=== PATIENT | female | born 1940 | race Caucasian/White ===

== ENCOUNTER → 2016-11-17 | Outpatient (CLI) | payer OTHER ==
[~2016-11-17] MED LIST: ACET-1311 PO; ASPI1TAB48 PO; ATOR-22 PO; DIVA1CAP2 PO; DIVA250T PO; FURO-85 PO; HALO5INJ IM; HALO5TAB PO; HYDR-4332 PO; LPT/40 PO; MCRK20 PO; MEGE40SU PO; MOML PO; NTRS PO; NUTR1LIQ55 PO; POTA20TA16 PO; QUET1TAB34 PO; SENN-61 PO; SODI1ENE RE; [UNRECOGNIZED DRUG - CODE] PO; dulcolax suppository RE
== END ==
LOC: C.LABUPHEI 09:06
PROVIDERS: ATTEND Family Medicine
DX: G40.89 Other seizures (principal)

== ENCOUNTER → 2016-11-18 | Outpatient (CLI) | payer OTHER | LOC: C.LABUPHEI 08:01 | PROVIDERS: ATTEND Family Medicine | DX: G40.89 Other seizures (principal) ==

== ENCOUNTER → 2016-12-02 | Outpatient (CLI) | payer OTHER ==
[~2016-12-02] MED LIST changes: -DIVA1CAP2 PO; +DPKSP125 PO
== END ==
LOC: C.LABUPHEI 09:04
PROVIDERS: ATTEND Family Medicine
DX: G40.89 Other seizures (principal)

== ENCOUNTER 2017-01-03 21:57 | Emergency (ER) | payer OTHER ==
[~2017-01-03] VITALS: Ht 152.4 cm; Wt 66.8 kg
[~2017-01-03 21:57] MED LIST changes: -DIVA250T PO; -HALO5INJ IM; -HALO5TAB PO; -HYDR-4332 PO; -LPT/40 PO; -MCRK20 PO; -MEGE40SU PO; -NTRS PO; -NUTR1LIQ55 PO; -SENN-61 PO
[2017-01-03 22:00] VITALS: TEMP 36.8; Ht 152.4 cm; Wt 66.8 kg
[2017-01-03] MEDS ORDERED: DIVA250T PO (23:22)
[2017-01-03] MEDS ORDERED: LPT/40 PO (23:23)
[2017-01-03] MEDS ORDERED: MEGE40SU PO (23:25)
[2017-01-03] MEDS ORDERED: MCRK20 PO (23:28)
[2017-01-03] MEDS ORDERED: SENN-61 PO (23:28)
[2017-01-03] MEDS ORDERED: NUTR1LIQ55 PO (23:29)
[2017-01-03] MEDS ORDERED: NTRS PO (23:33)
[2017-01-03] MEDS ORDERED: HALO5TAB PO (23:35)
[2017-01-03] MEDS ORDERED: [UNRECOGNIZED DRUG - CODE] PO (23:35)
[2017-01-03] MEDS ORDERED: HALO5INJ IM (23:37)
[2017-01-03] MEDS ORDERED: HYDR-4332 PO (23:39)
--- NOTE | 2017-01-04 01:39 | EMERGENCY ROOM VISIT NOTE ---
History Report prepared by Willibjoni: Anjel Andrew Under the Supervision of: Dr. Yinka Flaherty M.D. First contact with patient: 23:09 Chief Complaint: FALL Stated Complaint: FELL OUT OF WHEELCHAIR/ FR [facility] History of Present Illness The patient is a 76 year old female who presents to the Emergency Room with complaints of an acute fall that occurred prior to arrival. As per her , the patient fell face-first from her wheelchair at [facility] when she attempted to get up too quickly. The is not sure if she lost consciousness or injured any other part of her body. The patient is able to ambulate with help, but spends most of the time wheelchair-bound. The heart side doctor sent her here for CT scanning. The patient is not on any blood thinners. A complete history is limited secondary to dementia. Source of History: spouse/significant other History Limited By: dementia Onset: prior to arrival Position: other (global) Quality: other (fall) Timing: other (acute) Review of Systems ROS is limited secondary to dementia. Past Medical & Surgical Medical Problems: (1) Altered mental status (2) Alzheimers disease (3) Hypertension (4) Left Knee DJD Surgical Problems: (1) H/O laminectomy (2) H/O Spinal surgery (3) Hx of total knee arthroplasty (4) S/P ANKITA-BSO Family History No significant family history Social History Smoking Status: Unknown if Ever Smoked Drug Use: none Marital Status: Housing Status: lives with family Occupation Status: retired Current/Historical Medications Scheduled Atorvastatin (Lipitor), 40 MG PO DAILY Divalproex Sodium (Divalproex Sodium), 375 MG PO DAILY@1800 Divalproex Sodium (Depakote Er), 500 MG PO QAM Enteral Nutrition Formula (Nutritional Supplement), 120 ML PO TID Furosemide (Lasix), 20 MG PO DAILY Megestrol Acetate (Megace Oral), 400 MG PO DAILY Nutritional Supplements (Nutritional Supplement), 180 ML PO BID Potassium Ext Rel (Klor-Con), 20 MEQ PO DAILY Quetiapine Fumarate (Seroquel), 200 MG PO BID Senna (Senokot), 1 TAB PO DAILY Scheduled PRN Acetaminophen (Tylenol), 650 MG PO Q6 PRN for Pain or Fever Guaifenesin (Irene-Tussin), 10 ML PO Q6 PRN for Cough Haloperidol (Haldol), 5 MG PO Q6 PRN for Agitation Haloperidol Lactate (Haldol), 5 MG IM Q6 PRN for Agitation Hydrocodone-Acetaminophen (LORTAB 10-325 mg), 1 TAB PO Q4 PRN for Pain Allergies Coded Allergies: Morphine (Verified Allergy, Unknown, UNKNOWN, 01/03/17) Tramadol (Verified Adverse Reaction, Intermediate, "WENT TRIPPING OUT" PER , 01/03/17) Physical Exam Vital Signs Date Time Temp Pulse Resp B/P Pulse Ox O2 Delivery O2 Flow Rate FiO2 01/03/17 23:55 67 20 126/70 92 Room Air 01/03/17 22:00 36.8 79 16 124/72 98 Room Air Physical Exam Constitutional: Vital signs reviewed. Eyes: Pupils are equal round reactive to light. Conjunctiva are noninjected. ENT: Pharynx is clear without erythema or exudate. Mucous membranes are moist. Mild swelling to her nose. No epistaxis. No septal hematoma. No midline tenderness to the cervical spine. Neck supple without meningeal signs. Respiratory: Clear to auscultation bilaterally. Breath sounds are equal bilaterally. Cardiovascular: Regular rate and rhythm. No rubs or gallops. GI: Soft, nondistended and nontender. Bowel sounds are present. Musculoskeletal: No hip tenderness. Integumentary: No cyanosis. Neurological: The patient is somnolent but arousable. She does not follow commands. Psychiatric: Unable to assess. Medical Decision & Procedures ER Provider Diagnostic Interpretation: CT results as stated below per my review and radiologist interpretation. CT HEAD: No acute intracranial hemorrhage or mass effect. CT FACIAL: No acute fracture or dislocation. CT C-SPINE: Limited with positioning/technique. Within this limitation, no gross evidence for acute fracture or dislocation. Multi-level degenerative spondylosis. Radiologist: Zander Dominguez MD. ED Course 2312: The patient was evaluated in room A11b. A complete history and physical exam was performed. 0010: I discussed jackight's findings with the . He verbalized agreement of the treatment plan. She was discharged home. Medical Decision This is a 76-year-old female presents with injuries after a fall. Differential diagnosis includes contusion, concussion, intracranial hemorrhage, facial fracture. I did perform a limited focused review of portions of the patient's old chart on the electronic medical record. The patient has had no recent pertinent visits to this hospital. I did evaluate the patient as noted above. I did obtain history from the patient's . The patient fell when she got up too quickly from her wheelchair and suffered a facial injury. She does not appear to have any other injury on examination. I did order a CT of the head, cervical spine and facial bones. I did review the images myself as well as the radiology report as described above. There is no evidence of acute process. I did discuss the test results with the patient's . She was transferred back to her residence. Impression Primary Impression: Acute head injury Additional Impressions: Facial contusion Fall Scribe Attestation The scribe's documentation has been prepared under my direct and personally reviewed by me in its entirety. I confirm that the note above accurately reflects all work, treatment, procedures, and medical decision making performed by me. Departure Information Dispostion Home / Self-Care Referrals Db Perdue (PCP) Forms HOME CARE DOCUMENTATION FORM, IMPORTANT VISIT INFORMATION Patient Instructions ED Head Injury Closed, My [facility] Additional Instructions You have been examined and treated today on an emergency basis only. This is not a substitute for, or an effort to provide, complete comprehensive medical care. It is impossible to recognize and treat all injuries or illnesses in a single emergency department visit. It is therefore important that you follow up closely with your physician. Call as soon as possible for an appointment. Return for worsening symptoms or if you develop fever, vomiting, or any other concerning symptoms. Problem Qualifiers
[2017-01-04 01:50] VITALS: BP 94/66; PULSE 67; O2SAT 96
--- NOTE | 2017-01-04 06:32 | DIAGNOSTIC IMAGING REPORT ---
CT HEAD WITHOUT CONTRAST (CT) CLINICAL HISTORY: Head trauma. Head pain. COMPARISON STUDY: 10/21/2016 TECHNIQUE: Axial CT of the brain is performed from the vertex to the skull base. IV contrast was not administered for this examination. CT DOSE: FINDINGS: No intra or extra-axial mass lesions are visualized. There is no CT evidence of acute cortical infarction. There is no evidence of midline shift. There is no acute hemorrhage. No calvarial fractures are visualized. There are patchy white matter hypodensities likely on a small vessel basis. 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 There is no evidence of pathologic ventricular dilatation. There is no evidence of acute sinusitis IMPRESSION: No acute intracranial findings Electronically signed by: Khang Bustillo M.D. 01/04/2017 6:31 AM Dictated Date/Time: 01/04/2017 6:30 AM
--- NOTE | 2017-01-04 06:37 | DIAGNOSTIC IMAGING REPORT ---
CT OF THE CERVICAL SPINE CLINICAL HISTORY: Neck pain status post trauma COMPARISON STUDY: 10/21/2016 CT DOSE: 953.64 mGy.cm TECHNIQUE: CT scan of the cervical spine was performed from the skull base to the thoracic inlet. Images are reviewed in the axial, sagittal, and coronal planes. IV contrast was not administered for this examination. FINDINGS: There is a small right mastoid effusion. There is mild mucosal thickening within the right sphenoid area no pneumothorax is visualized. There is a right apical bleb. The prevertebral soft tissues are normal. No fractures or traumatic subluxations are visualized. There are multilevel degenerative changes. 2 mm of anterior subluxation of C4 on C5 is felt to be degenerative IMPRESSION: No evidence of acute fracture or traumatic subluxation. Electronically signed by: Khang Bustillo M.D. 01/04/2017 6:35 AM Dictated Date/Time: 01/04/2017 6:31 AM
--- NOTE | 2017-01-04 06:43 | DIAGNOSTIC IMAGING REPORT ---
ADDENDUM Addendum: The mail sorter image demonstrates a displaced right humeral neck fracture which is age indeterminate although likely subacute to chronic. Right humerus radiographs could be obtained as indicated. Electronically signed by: Thom Alford M.D. 01/04/2017 7:18 AM Dictated Date/Time: 01/04/2017 7:18 AM ORIGINAL REPORT MAXILLOFACIAL CT WITHOUT CONTRAST CLINICAL HISTORY: Fall. Evaluate for fracture. COMPARISON STUDY: Head CT July 06, 2016. TECHNIQUE: A maxillofacial CT was performed without IV contrast. Coronal and sagittal reformats were viewed. FINDINGS: No acute facial fracture is identified. Alignment of the temporomandibular joints is anatomic. There is mild mucosal thickening of the sphenoid sinuses. There is a small amount of fluid within the bilateral mastoid air cells. IMPRESSION: No acute facial fracture. Electronically signed by: Thom Alford M.D. 01/04/2017 6:42 AM Dictated Date/Time: 01/04/2017 6:37 AM
== END 2017-01-04 01:55 | disposition home or self-care (01) ==
LOC: EDBD 21:57 → C.EDA 21:58
DX: S09.90XA Unspecified injury of head, initial encounter (principal); T14.8 Other injury of unspecified body region; W05.0XXA Fall from non-moving wheelchair, initial encounter; R41.82 Altered mental status, unspecified; G30.9 Alzheimer's disease, unspecified; F02.80 Dementia in other diseases classified elsewhere, unspecified severity, without behavioral disturbance, psychotic disturbance, mood disturbance, and anxiety; I10 Essential (primary) hypertension; M17.9 Osteoarthritis of knee, unspecified

== ENCOUNTER → 2017-01-06 | Outpatient (CLI) | payer OTHER ==
[~2017-01-06] MED LIST changes: +DIVA250T PO; +HALO5INJ IM; +HALO5TAB PO; +HYDR-4332 PO; +LPT/40 PO; +MCRK20 PO; +MEGE40SU PO; +NTRS PO; +NUTR1LIQ55 PO; +SENN-61 PO
[2017-01-06 09:37] LABS: URINE APPEARANCE CLEAR (CLEAR); URINE BILIRUBIN NEG (NEG); URINE COLOR YELLOW; URINE NITRITE NEG (NEG); URINE PH 6.5 (4.5-7.5); URINE SPECIFIC GRAVITY 1.012 (1.000-1.030); UROBILINOGEN NEG (NEG)
[2017-01-06 09:58] LABS: MANUAL MICROSCOPIC REQUIRED? NO; REVIEW REQ? NO
== END ==
LOC: C.LABUPHEI 08:53
PROVIDERS: ATTEND Family Medicine
DX: F91.0 Conduct disorder confined to family context (principal)

== ENCOUNTER → 2017-01-18 | Outpatient (CLI) | payer OTHER ==
[~2017-01-18] MED LIST changes: -ASPI1TAB48 PO; -ATOR-22 PO; -MCRK20 PO; -MOML PO; -SODI1ENE RE; -dulcolax suppository RE
[2017-01-18 10:22] LABS: ALT/SGPT 10 U/L (12-78); BLOOD UREA NITROGEN 20 mg/dl (7-18); BUN/CREATININE RATIO 35.5 (10-20); CALCIUM 8.2 mg/dl (8.5-10.1); CARBON DIOXIDE 24 mmol/L (21-32); CHLORIDE 114 mmol/L (98-107); CREATININE 0.56 mg/dl (0.60-1.20); GLUCOSE 83 mg/dl (70-99); POTASSIUM 3.7 mmol/L (3.5-5.1); SODIUM 149 mmol/L (136-145)
[2017-01-18 10:25] LABS: ALB/GLOB RATIO 0.6 (0.9-2); ALKALINE PHOSPHATASE 56 U/L (45-117); AST/SGOT 21 U/L (15-37); CHOLESTEROL 89 mg/dl (0-200); CHOLESTEROL/HDL RATIO 3.9; HDL CHOLESTEROL 23 mg/dl; LDL CHOLESTEROL CALCULATED 45 mg/dl; TRIGLYCERIDES 106 mg/dl (0-150); VERY LOW DENSITY LIPOPROT CALC 21 mg/dl
== END ==
LOC: C.LABUPHEI 09:51
PROVIDERS: ATTEND Family Medicine
DX: E87.6 Hypokalemia (principal); G40.89 Other seizures; E78.5 Hyperlipidemia, unspecified

== ENCOUNTER → 2017-01-28 | Outpatient (CLI) | payer OTHER ==
[2017-01-28 08:29] LABS: BLOOD UREA NITROGEN 12 mg/dl (7-18); BUN/CREATININE RATIO 21.8 (10-20); CALCIUM 8.1 mg/dl (8.5-10.1); CARBON DIOXIDE 28 mmol/L (21-32); CHLORIDE 108 mmol/L (98-107); CREATININE 0.57 mg/dl (0.60-1.20); GLUCOSE 84 mg/dl (70-99); POTASSIUM 3.5 mmol/L (3.5-5.1); SODIUM 144 mmol/L (136-145)
== END ==
LOC: C.LABUPHEI 07:57
PROVIDERS: ATTEND Family Medicine
DX: M62.81 Muscle weakness (generalized) (principal)

== ENCOUNTER → 2017-02-20 | Outpatient (CLI) | payer OTHER ==
[~2017-02-20] MED LIST changes: +DIVA1CAP2 PO; -DPKSP125 PO
[2017-02-20 06:48] LABS: ALT/SGPT 22 U/L (12-78); AST/SGOT 37 U/L (15-37); BLOOD UREA NITROGEN 9 mg/dl (7-18); BUN/CREATININE RATIO 16.9 (10-20); CALCIUM 8.1 mg/dl (8.5-10.1); CARBON DIOXIDE 27 mmol/L (21-32); CHLORIDE 107 mmol/L (98-107); CREATININE 0.52 mg/dl (0.60-1.20); GLUCOSE 79 mg/dl (70-99); POTASSIUM 3.8 mmol/L (3.5-5.1); SODIUM 144 mmol/L (136-145)
[2017-02-20 06:50] LABS: BASO % 0.7 %; BASO ABS # 0.04 K/uL (0-0.2); COMPLETE YES; EOS % 1.3 %; HEMATOCRIT 36.1 % (37-47); IG% 0.9 %; LYMPH % 35.2 %; LYMPH ABS # 1.97 K/uL (1.2-3.4); MEAN CELL VOLUME 98.6 fL (80-100); MEAN CORPUSCULAR HEMOGLOBIN 33.3 pg (25-34); MEAN CORPUSCULAR HGB CONC 33.8 g/dl (32-36); MEAN PLATELET VOLUME 11.2 fL (7.4-10.4); MONO % 13.6 %; NEUT % 48.3 %; PLATELET COUNT 210 K/uL (130-400); RED BLOOD COUNT 3.66 M/uL (4.2-5.4); WHITE BLOOD COUNT 5.59 K/uL (4.8-10.8)
[2017-02-20 06:58] LABS: ALB/GLOB RATIO 0.6 (0.9-2); ALKALINE PHOSPHATASE 60 U/L (45-117)
== END ==
LOC: C.LABUPHEI 11:19
PROVIDERS: ATTEND Family Medicine
DX: R60.9 Edema, unspecified (principal); G40.89 Other seizures; M62.81 Muscle weakness (generalized)

== ENCOUNTER → 2017-03-22 | Outpatient (CLI) | payer OTHER ==
[2017-03-22 08:52] LABS: BASO % 0.4 %; BASO ABS # 0.02 K/uL (0-0.2); COMPLETE YES; HEMATOCRIT 42.3 % (37-47); IG% 0.4 %; LYMPH % 36.3 %; LYMPH ABS # 1.97 K/uL (1.2-3.4); MEAN CELL VOLUME 105.2 fL (80-100); MEAN CORPUSCULAR HEMOGLOBIN 34.3 pg (25-34); MEAN CORPUSCULAR HGB CONC 32.6 g/dl (32-36); MEAN PLATELET VOLUME 11.6 fL (7.4-10.4); MONO % 12.9 %; PLATELET COUNT 218 K/uL (130-400); RED BLOOD COUNT 4.02 M/uL (4.2-5.4); WHITE BLOOD COUNT 5.42 K/uL (4.8-10.8)
[2017-03-22 09:05] LABS: BLOOD UREA NITROGEN 13 mg/dl (7-18); BUN/CREATININE RATIO 25.1 (10-20); CALCIUM 8.6 mg/dl (8.5-10.1); CARBON DIOXIDE 30 mmol/L (21-32); CHLORIDE 108 mmol/L (98-107); CREATININE 0.52 mg/dl (0.60-1.20); GLUCOSE 81 mg/dl (70-99); POTASSIUM 3.8 mmol/L (3.5-5.1); SODIUM 144 mmol/L (136-145)
== END ==
LOC: C.LABUPHEI 08:39
PROVIDERS: ATTEND Family Medicine
DX: E87.6 Hypokalemia (principal); E55.9 Vitamin D deficiency, unspecified; R60.9 Edema, unspecified; G40.89 Other seizures

== ENCOUNTER → 2017-04-01 | Outpatient (CLI) | payer OTHER ==
[2017-04-01 09:18] LABS: BASO % 0.6 %; BASO ABS # 0.03 K/uL (0-0.2); COMPLETE YES; EOS % 3.2 %; HEMATOCRIT 37.8 % (37-47); IG% 0.2 %; LYMPH % 37.1 %; LYMPH ABS # 1.98 K/uL (1.2-3.4); MEAN CELL VOLUME 104.4 fL (80-100); MEAN CORPUSCULAR HGB CONC 32.5 g/dl (32-36); MONO % 10.7 %; NEUT % 48.2 %; PLATELET COUNT 208 K/uL (130-400); RED BLOOD COUNT 3.62 M/uL (4.2-5.4); WHITE BLOOD COUNT 5.33 K/uL (4.8-10.8)
[2017-04-01 09:33] LABS: BLOOD UREA NITROGEN 14 mg/dl (7-18); BUN/CREATININE RATIO 31.4 (10-20); CALCIUM 8.1 mg/dl (8.5-10.1); CARBON DIOXIDE 28 mmol/L (21-32); CHLORIDE 109 mmol/L (98-107); CREATININE 0.46 mg/dl (0.60-1.20); GLUCOSE 81 mg/dl (70-99); POTASSIUM 3.7 mmol/L (3.5-5.1); SODIUM 143 mmol/L (136-145)
== END ==
LOC: C.LABUPHEI 08:57
PROVIDERS: ATTEND Nurse Practitioner Family
DX: G40.89 Other seizures (principal); E55.9 Vitamin D deficiency, unspecified; I10 Essential (primary) hypertension

== ENCOUNTER → 2017-04-22 | Outpatient (CLI) | payer OTHER ==
[~2017-04-22] MED LIST changes: -DIVA1CAP2 PO; +DPKSP125 PO
== END ==
LOC: C.LABUPHEI 08:41
PROVIDERS: ATTEND Family Medicine
DX: Z01.89 Encounter for other specified special examinations (principal)

== ENCOUNTER → 2017-06-30 | Outpatient (CLI) | payer OTHER | LOC: C.LABUPHEI 08:38 | PROVIDERS: ATTEND Nurse Practitioner Family | DX: G40.89 Other seizures (principal) ==

== ENCOUNTER → 2017-07-28 | Outpatient (CLI) | payer OTHER ==
[2017-07-28 10:57] LABS: BASO % 0.8 %; BASO ABS # 0.03 K/uL (0-0.2); COMPLETE YES; HEMATOCRIT 38.7 % (37-47); IG% 0.3 %; LYMPH % 37.6 %; LYMPH ABS # 1.42 K/uL (1.2-3.4); MEAN CORPUSCULAR HEMOGLOBIN 32.6 pg (25-34); MEAN CORPUSCULAR HGB CONC 32.6 g/dl (32-36); MEAN PLATELET VOLUME 11.2 fL (7.4-10.4); MONO % 11.6 %; NEUT % 44.7 %; PLATELET COUNT 213 K/uL (130-400); RED BLOOD COUNT 3.87 M/uL (4.2-5.4); WHITE BLOOD COUNT 3.78 K/uL (4.8-10.8)
[2017-07-28 11:29] LABS: ALT/SGPT 12 U/L (12-78); AST/SGOT 9 U/L (15-37); BLOOD UREA NITROGEN 13 mg/dl (7-18); CALCIUM 8.4 mg/dl (8.5-10.1); CARBON DIOXIDE 29 mmol/L (21-32); CHLORIDE 107 mmol/L (98-107); CREATININE 0.53 mg/dl (0.60-1.20); GLUCOSE 78 mg/dl (70-99); POTASSIUM 3.7 mmol/L (3.5-5.1); SODIUM 144 mmol/L (136-145)
[2017-07-28 11:34] LABS: ALB/GLOB RATIO 0.8 (0.9-2); ALKALINE PHOSPHATASE 75 U/L (45-117); CHOLESTEROL 80 mg/dl (0-200); CHOLESTEROL/HDL RATIO 2.8; HDL CHOLESTEROL 29 mg/dl; LDL CHOLESTEROL CALCULATED 22 mg/dl; TRIGLYCERIDES 143 mg/dl (0-150); VERY LOW DENSITY LIPOPROT CALC 29 mg/dl
== END ==
LOC: C.LABUPHEI 09:11
PROVIDERS: ATTEND Nurse Practitioner Family
DX: R60.9 Edema, unspecified (principal); G40.89 Other seizures; E78.5 Hyperlipidemia, unspecified; E55.9 Vitamin D deficiency, unspecified

== ENCOUNTER → 2017-08-27 | Outpatient (CLI) | payer OTHER ==
[2017-08-27 09:10] LABS: BASO % 0.5 %; BASO ABS # 0.02 K/uL (0-0.2); COMPLETE YES; EOS % 4.1 %; HEMATOCRIT 44.2 % (37-47); IG% 0.2 %; LYMPH % 37.7 %; LYMPH ABS # 1.57 K/uL (1.2-3.4); MEAN CELL VOLUME 98.9 fL (80-100); MEAN CORPUSCULAR HEMOGLOBIN 32.9 pg (25-34); MEAN CORPUSCULAR HGB CONC 33.3 g/dl (32-36); MEAN PLATELET VOLUME 11.3 fL (7.4-10.4); MONO % 11.3 %; NEUT % 46.2 %; PLATELET COUNT 202 K/uL (130-400); RED BLOOD COUNT 4.47 M/uL (4.2-5.4); WHITE BLOOD COUNT 4.16 K/uL (4.8-10.8)
== END ==
LOC: C.LABUPHEI 08:54
PROVIDERS: ATTEND Nurse Practitioner Family
DX: I10 Essential (primary) hypertension (principal)

== ENCOUNTER → 2017-10-27 | Outpatient (CLI) | payer OTHER ==
[~2017-10-27] MED LIST changes: +DIVA1CAP2 PO; -DPKSP125 PO
== END | disposition home or self-care (01) ==
LOC: C.LABUPHEI 07:47
PROVIDERS: ATTEND Nurse Practitioner Family
DX: G40.89 Other seizures (principal)

== ENCOUNTER → 2017-12-18 | Outpatient (CLI) | payer OTHER ==
[~2017-12-18] MED LIST changes: +APIX1TAB3 PO; +BISA10SU3 PR; +DIVA125C4 PO; -DIVA1CAP2 PO; +LORA-741 PO; +MIRT1TAB27 PO
[2017-12-18 06:38] LABS: BASO % 0.2 %; BASO ABS # 0.01 K/uL (0-0.2); EOS % 2.8 %; EOS ABS # 0.12 K/uL (0-0.5); HEMATOCRIT 43.7 % (37-47); HEMOGLOBIN 14.7 g/dL (12.0-16.0); IG# 0.01 K/uL (0.00-0.02); LYMPH % 47.8 %; LYMPH ABS # 2.04 K/uL (1.2-3.4); MEAN CORPUSCULAR HEMOGLOBIN 33.6 pg (25-34); MEAN CORPUSCULAR HGB CONC 33.6 g/dl (32-36); MEAN PLATELET VOLUME 12.5 fL (7.4-10.4); MONO % 11.2 %; MONO ABS # 0.48 K/uL (0.11-0.59); NEUT % 37.8 %; NEUT ABS # 1.61 K/uL (1.4-6.5); PLATELET COUNT 140 K/uL (130-400); RED CELL DISTRIBUTION WIDTH CV 13.6 % (11.5-14.5); RED CELL DISTRIBUTION WIDTH SD 49.7 fL (36.4-46.3); WHITE BLOOD COUNT 4.27 K/uL (4.8-10.8)
[2017-12-18 06:53] LABS: ALBUMIN 2.7 gm/dl (3.4-5.0); ALT/SGPT 15 U/L (12-78); AST/SGOT 18 U/L (15-37); BLOOD UREA NITROGEN 8 mg/dl (7-18); CALCIUM 8.6 mg/dl (8.5-10.1); CARBON DIOXIDE 30 mmol/L (21-32); CREATININE 0.55 mg/dl (0.60-1.20); GLUCOSE 69 mg/dl (70-99); POTASSIUM 3.5 mmol/L (3.5-5.1); SODIUM 143 mmol/L (136-145)
[2017-12-18 07:01] LABS: ALKALINE PHOSPHATASE 63 U/L (45-117); TOTAL PROTEIN 6.2 gm/dl (6.4-8.2)
== END ==
LOC: C.LABUPHEI 16:37
PROVIDERS: ATTEND Nurse Practitioner Family
DX: R45.1 Restlessness and agitation (principal); I10 Essential (primary) hypertension; R60.9 Edema, unspecified

== ENCOUNTER 2017-12-27 08:50 | Emergency (ER) | payer OTHER ==
[~2017-12-27] VITALS: Ht 149.9 cm; Wt 58.6 kg
[~2017-12-27 08:50] MED LIST changes: -APIX1TAB3 PO; -BISA10SU3 PR; -LORA-741 PO; -MIRT1TAB27 PO
[2017-12-27 09:05] VITALS: TEMP 36.9; O2SAT 96; Ht 149.9 cm; Wt 58.6 kg
[2017-12-27 09:33] LABS: BASO % 0.3 %; BASO ABS # 0.02 K/uL (0-0.2); EOS % 1.8 %; EOS ABS # 0.12 K/uL (0-0.5); HEMATOCRIT 41.9 % (37-47); HEMOGLOBIN 14.5 g/dL (12.0-16.0); IG# 0.06 K/uL (0.00-0.02); LYMPH % 40.1 %; LYMPH ABS # 2.64 K/uL (1.2-3.4); MEAN CELL VOLUME 98.1 fL (80-100); MEAN CORPUSCULAR HGB CONC 34.6 g/dl (32-36); MEAN PLATELET VOLUME 10.3 fL (7.4-10.4); MONO % 5.9 %; MONO ABS # 0.39 K/uL (0.11-0.59); NEUT ABS # 3.36 K/uL (1.4-6.5); PLATELET COUNT 204 K/uL (130-400); RED CELL DISTRIBUTION WIDTH CV 13.6 % (11.5-14.5); RED CELL DISTRIBUTION WIDTH SD 48.9 fL (36.4-46.3); WHITE BLOOD COUNT 6.59 K/uL (4.8-10.8)
[2017-12-27 09:50] LABS: CALCIUM 9.1 mg/dl (8.5-10.1); CREATININE 0.58 mg/dl (0.60-1.20); POTASSIUM 3.1 mmol/L (3.5-5.1)
--- NOTE | 2017-12-27 11:22 | EMERGENCY ROOM VISIT NOTE ---
History Report prepared by Lawanda: Marky Victor Under the Supervision of: Dr. Ernst Landis D.O. First contact with patient: 09:12 Chief Complaint: SEIZURE Stated Complaint: SEIZURE Nursing Triage Summary: Pt to ER via ALS with reported seizure like activity for approx 1 min this AM from [facility]. Pt was unresponsive following event. Pt is now awake. At baseline pt is not oriented or talkative. Pt has hx of dementia and seizures. Pt did vomit x2 SENIOR UX DEVELOPER, received 4mg Zofran IV. Pt O2 saturation on arrival was 88% on RA, now on 4L O2 saturation now 96%. Family at bedside. History of Present Illness This HPI is limited secondary to baseline dementia and the current mental status of the patient. The patient is a 77 year old female who presents to the Emergency Room via ALS following a seizure-like episode that occurred shortly prior to arrival. Per Hospital Nursing staff the patient exhibited seizure-like activity for approximately 1 minute this morning. This episode was witnessed by staff from the [facility] where the patient lives. Following the episode the patient was unresponsive, however she is now awake upon arrival to the department. She has a history of seizures and is not oriented at baseline. Upon arrival to the Emergency Department the patient was 88% Oxygen saturation on room air. She received 4 mg of Zofran en route to the department. The at bedside states that he believes she has only had one seizure episode in the past. He notes that she has been on Depakote for seizures since she was admitted to the hospital several years ago. The added that he was called by [facility] nursing staff this morning and told that she lost consciousness while eating breakfast this morning. She has a history of a CVA. Source of History: spouse/significant other, fpc notes, nursing staff Onset: Shortly SENIOR UX DEVELOPER Position: other (Neuro) Symptom Intensity: 1-min of Seizure activity Quality: other (Seizure-like activity) Review of Systems See HPI for pertinent positives & negatives. A total of 10 systems reviewed and were otherwise negative. Past Medical & Surgical Medical Problems: (1) Altered mental status (2) Alzheimers disease (3) Hypertension (4) Left Knee DJD Surgical Problems: (1) H/O laminectomy (2) H/O Spinal surgery (3) Hx of total knee arthroplasty (4) S/P ANKITA-BSO Family History No significant family history Social History Smoking Status: Unknown if Ever Smoked Drug Use: none Marital Status: Housing Status: lives with family Occupation Status: retired Current/Historical Medications Scheduled Apixaban (Eliquis), 5 MG PO DAILY Atorvastatin (Lipitor), 40 MG PO DAILY Divalproex Sodium (Divalproex Sodium), 375 MG PO DAILY@1800 Furosemide (Lasix), 20 MG PO DAILY Lorazepam (Ativan), 0.25 MG PO BID Mirtazapine (Mirtazapine), 7.5 MG PO HS Potassium Ext Rel (Klor-Con), 20 MEQ PO DAILY Quetiapine Fumarate (Seroquel), 100 MG PO BID Senna (Senokot), 1 TAB PO DAILY Scheduled PRN Acetaminophen (Tylenol), 650 MG PO Q6 PRN for Pain or Fever Bisacodyl (Dulcolax), [address] for Constipation Allergies Coded Allergies: Morphine (Verified Allergy, Unknown, UNKNOWN, 12/27/17) Tramadol (Verified Adverse Reaction, Intermediate, "WENT TRIPPING OUT" PER , 12/27/17) Physical Exam Vital Signs Date Time Temp Pulse Resp B/P (MAP) Pulse Ox O2 Delivery O2 Flow Rate FiO2 12/27/17 10:30 71 14 115/77 99 Room Air 12/27/17 09:57 79 16 113/74 99 Nasal Cannula 3.0 12/27/17 09:05 96 Nasal Cannula 4.0 12/27/17 09:05 36.9 109 22 122/76 88 Room Air 12/27/17 08:58 105 Physical Exam CONSTITUTIONAL/VITAL SIGNS: Reviewed / noted above. GENERAL: Non-toxic in appearance. INTEGUMENTARY: Warm, dry, and [place]. HEAD: Normocephalic. EYES: without scleral icterus or trauma. ENT/OROPHARYNX: clear and moist. LYMPHADENOPATHY/NECK: Is supple without lymphadenopathy or meningismus. RESPIRATORY: Lungs clear and equal. CARDIOVASCULAR: Regular rate and rhythm. GI/ABDOMEN: Soft and nontender. No organomegaly or pulsatile mass. No rebound or guarding. Normal bowel sounds. EXTREMITIES: Warm with limited muscle tone in the extremities. BACK: No CVA tenderness. NEUROLOGICAL: Intact without focal deficits. MUSCULOSKELETAL: Normally developed with good muscle tone. NEURO: Patient did not respond verbally, opens eyes but does not follow commands. Limited muscle tone in the extremities. Does not cooperate with exam. Medical Decision & Procedures Laboratory Results 12/27/17 09:05 Red Blood Count 4.27, Mean Corpuscular Volume 98.1, Mean Corpuscular Hemoglobin 34.0, Mean Corpuscular Hemoglobin Concent 34.6, Mean Platelet Volume 10.3, Neutrophils (%) (Auto) 51.0, Lymphocytes (%) (Auto) 40.1, Monocytes (%) (Auto) 5.9, Eosinophils (%) (Auto) 1.8, Basophils (%) (Auto) 0.3, Neutrophils # (Auto) 3.36, Lymphocytes # (Auto) 2.64, Monocytes # (Auto) 0.39, Eosinophils # (Auto) 0.12, Basophils # (Auto) 0.02 12/27/17 09:05 Test 12/27/17 09:05 White Blood Count 6.59 K/uL (4.8-10.8) Red Blood Count 4.27 M/uL (4.2-5.4) Hemoglobin 14.5 g/dL (12.0-16.0) Hematocrit 41.9 % (37-47) Mean Corpuscular Volume 98.1 fL (80-100) Mean Corpuscular Hemoglobin 34.0 pg (25-34) Mean Corpuscular Hemoglobin Concent 34.6 g/dl (32-36) Platelet Count 204 K/uL (130-400) Mean Platelet Volume 10.3 fL (7.4-10.4) Neutrophils (%) (Auto) 51.0 % Lymphocytes (%) (Auto) 40.1 % Monocytes (%) (Auto) 5.9 % Eosinophils (%) (Auto) 1.8 % Basophils (%) (Auto) 0.3 % Neutrophils # (Auto) 3.36 K/uL (1.4-6.5) Lymphocytes # (Auto) 2.64 K/uL (1.2-3.4) Monocytes # (Auto) 0.39 K/uL (0.11-0.59) Eosinophils # (Auto) 0.12 K/uL (0-0.5) Basophils # (Auto) 0.02 K/uL (0-0.2) RDW Standard Deviation 48.9 fL (36.4-46.3) RDW Coefficient of Variation 13.6 % (11.5-14.5) Immature Granulocyte % (Auto) 0.9 % Immature Granulocyte # (Auto) 0.06 K/uL (0.00-0.02) Anion Gap 11.0 mmol/L (3-11) Est Creatinine Clear Calc Drug Dose 65.3 ml/min Estimated GFR () 104.5 Estimated GFR (Non- 90.2 BUN/Creatinine Ratio 18.2 (10-20) Calcium Level 9.1 mg/dl (8.5-10.1) Valproic Acid (Depakene) Level 43 mcg/ml (50-100) Laboratory results as stated above per my review. Medications Administered Medications (Trade) Dose Ordered Sig/Anuj Route Start Time Stop Time Status Last Admin Dose Admin Divalproex Sodium (Depakote Delay Rel Tab) 500 mg NOW ONCE PO 12/27/17 11:30 12/27/17 11:31 DC 12/27/17 11:34 500 MG ECG Indication: syncope, other (Seizure Activity) Rate (beats per minute): 110 Rhythm: sinus tachycardia Findings: other (NO ST elevations, No ST depression) Change: Patient's electrocardiogram interpreted by me. ED Course 0917: Previous medical records were reviewed. The patient was evaluated in room B9. A complete history and physical examination was performed. 1130: Ordered Divalproex Sodium 500 mg PO. 1133: On reevaluation, the patient is resting in bed. I discussed the results and findings with the patient' s and family. They verbalized agreement of the treatment plan. The patient was discharged back to [facility] Medical Decision Differential includes acute cardiac dysrhythmia, microinfarction, CVA, TIA, dehydration, anemia, electrolyte disturbance, seizure, trauma, intracranial bleeding, acute vascular catastrophe, thoracic aortic dissection, PE, abdominal aortic aneurysm rupture, ectopic rupture. This is a 77-year-old female who presents to the ED with a chief complaint of seizure like activity for 1 minute. The patient was at the local [facility] fpc when this occurred. The patient does have a history of seizures. She was briefly unresponsive but by the time EMS arrived, she was at baseline. She is not talkative and she does have a history of dementia. She is typically not oriented. The patient did have 2 episodes of vomiting and was given 4 mg of IV Zofran by EMS. She did not strike her head or have any trauma. The patient's physical exam was unremarkable. She is awake and opens her eyes. She does not respond to cooperate with exam. She does have movement of her extremities. The patient, according to family is bedbound and wheelchair-bound and does not walk. The patient's laboratory studies included CBC and complete metabolic panel which were normal. Her valproate level was 43. It was slightly low. The patient was given an extra dose here orally. She was felt to be stable for discharge and outpatient follow-up. Medication Reconcilliation Current Medication List: was personally reviewed by me Blood Pressure Screening Patient's blood pressure: Normal blood pressure Impression Primary Impression: Seizure Scribe Attestation The scribe's documentation has been prepared under my direction and personally reviewed by me in its entirety. I confirm that the note above accurately reflects all work, treatment, procedures, and medical decision making performed by me. Departure Information Dispostion Home / Self-Care ([facility]) Referrals Db Perdue (PCP) Patient Instructions My [facility] Additional Instructions Follow-up with your doctor for further care and evaluation in 1-2 days. Return to the emergency department for worsening or new symptoms or any concerns. You have been examined and treated today on an emergency basis only. This is not a substitute for, or an effort to provide, complete comprehensive medical care. It is impossible to recognize and treat all injuries or illnesses in a single emergency department visit. It is therefore important that you follow up closely with your doctor. Call as soon as possible for an appointment.
[2017-12-27] MEDS ORDERED: MIRT1TAB27 PO (11:25)
[2017-12-27] MEDS ORDERED: LORA-741 PO (11:25)
[2017-12-27] MEDS ORDERED: APIX1TAB3 PO (11:25)
[2017-12-27] MEDS ORDERED: BISA10SU3 PR (11:25)
[2017-12-27] MEDS ORDERED: DIVALPROEX SODIUM 500 MG DELAY RELEASE TAB PO ONE (11:30)
[2017-12-27] MEDS ORDERED: LORAZEPAM 2 MG/ML 1 ML VIAL IV STA (12:18)
[2017-12-27 13:22] VITALS: BP 109/67; PULSE 83; O2SAT 97
== END 2017-12-27 13:25 | disposition home or self-care (01) ==
LOC: EDBD 08:50 → C.EDB 08:51
DX: R56.9 Unspecified convulsions (principal); G30.9 Alzheimer's disease, unspecified; F02.80 Dementia in other diseases classified elsewhere, unspecified severity, without behavioral disturbance, psychotic disturbance, mood disturbance, and anxiety; I10 Essential (primary) hypertension; M17.12 Unilateral primary osteoarthritis, left knee; Z86.73 Personal history of transient ischemic attack (TIA), and cerebral infarction without residual deficits; Z79.01 Long term (current) use of anticoagulants; Z79.899 Other long term (current) drug therapy; Z88.5 Allergy status to narcotic agent

== ENCOUNTER → 2018-01-05 | Outpatient (CLI) | payer OTHER ==
[~2018-01-05] MED LIST changes: +APIX1TAB3 PO; +BISA10SU3 PR; -DIVA250T PO; -HALO5INJ IM; -HALO5TAB PO; -HYDR-4332 PO; +LORA-741 PO; -MEGE40SU PO; +MIRT1TAB27 PO; -NTRS PO; -NUTR1LIQ55 PO; -[UNRECOGNIZED DRUG - CODE] PO
== END ==
LOC: C.LABUPHEI 08:49
PROVIDERS: ATTEND Nurse Practitioner Family
DX: G40.89 Other seizures (principal)

== ENCOUNTER → 2018-01-20 | Outpatient (CLI) | payer OTHER | LOC: C.LABUPHEI 08:49 | PROVIDERS: ATTEND Nurse Practitioner Family | DX: R41.82 Altered mental status, unspecified (principal) ==

== ENCOUNTER → 2018-01-26 | Outpatient (CLI) | payer OTHER | LOC: C.LABUPHEI 09:32 | PROVIDERS: ATTEND Nurse Practitioner Family | DX: G40.89 Other seizures (principal) ==

== ENCOUNTER → 2018-02-02 | Outpatient (CLI) | payer OTHER | LOC: C.LABUPHEI 09:26 | PROVIDERS: ATTEND Nurse Practitioner Family | DX: G40.89 Other seizures (principal) ==

== ENCOUNTER → 2018-03-07 | Outpatient (CLI) | payer OTHER ==
[~2018-03-07] MED LIST changes: +POTA-639 PO; -POTA20TA16 PO
== END | disposition home or self-care (01) ==
LOC: C.LABUPHEI 08:54
PROVIDERS: ATTEND Nurse Practitioner Family
DX: G40.89 Other seizures (principal)

== ENCOUNTER → 2018-03-26 | Outpatient (CLI) | payer OTHER ==
[2018-03-26 10:18] LABS: BLOOD UREA NITROGEN 16 mg/dl (7-18); CALCIUM 8.6 mg/dl (8.5-10.1); CARBON DIOXIDE 26 mmol/L (21-32); CREATININE 0.62 mg/dl (0.60-1.20); GLUCOSE 126 mg/dl (70-99); POTASSIUM 4.1 mmol/L (3.5-5.1); SODIUM 139 mmol/L (136-145)
== END ==
LOC: C.LABUPHEI 11:37
PROVIDERS: ATTEND Nurse Practitioner Family
DX: G40.89 Other seizures (principal)

== ENCOUNTER → 2018-06-06 | Outpatient (CLI) | payer OTHER | LOC: C.LABUPHEI 08:56 | PROVIDERS: ATTEND Nurse Practitioner Family | DX: G40.89 Other seizures (principal) ==